=== PATIENT | female | born 1975 | race Caucasian/White ===

== ENCOUNTER → 2018-08-29 10:02 | Outpatient (CLI) | payer OTHER, SELFPAY ==
--- NOTE | 2018-08-29 | DI.US.S_ITS ---
PROCEDURE: US THYROID INDICATIONS: ROUTINE TECHNIQUE: Real-time scanning was performed of the thyroid gland, with image documentation. COMPARISON: None. FINDINGS: Right: Thyroid lobe measures 1.5 x 1.0 x 1.1 cm, and is diffusely heterogeneous in echotexture. There are 2 right lymph node is present adjacent to the submandibular region largest measuring 8 mm in maximal short axis. Left: Thyroid lobe measures 3.0 x 1.2 x 1.5 cm, and is diffusely heterogeneous in echotexture. Isthmus: 1.0 mm thick. Nodule number: 1 Location: Right mid Size: 0.4 x 0.3 x 0.3 cm. Composition: Cystic Echogenicity: Anechoic Shape: wider than tall. Margins: Smooth Echogenic foci: None Total points: 0 ACR TI-RADS category: Benign colloid cyst. Nodule number: 2 Location: Left superior Size: 0.4 x 0.3 x 0.6 cm. Composition: Cystic Echogenicity: Anechoic Shape: wider than tall. Margins: Smooth Echogenic foci: None Total points: 0 ACR TI-RADS category: Benign colloid cyst. IMPRESSION: 1. Diffusely atrophic and heterogeneous thyroid with appearance suggesting the possibility of thyroiditis. Correlate clinically. 2. Bilateral colloid cysts. 3. Several morphologically normal appearing lymph nodes on the right. ACR TI-RADS definitions and recommendations: TI-RADS 1 (benign): 0 points. FNA not needed. TI-RADS 2 (not suspicious): 2 points. FNA not needed. TI-RADS 3 (mildly suspicious): 3 points. * FNA if 2.5 cm or larger, follow up if 1.5 cm or larger (at 1, 3, and 5 years). TI-RADS 4 (moderately suspicious): 4-6 points. * FNA if 1.5 cm or larger, follow up if 1 cm or larger (at 1, 2, 3, and 5 years). TI-RADS 5 (highly suspicious): 7 points or more. * FNA if 1 cm or larger, follow up if 0.5 cm or larger (every year for 5 years). Dictated by: Andrea SAMANIEGO Interpreted: Ling Parisi MD on 08/29/2018 at 12:55 Approved by: Ling Parisi M.D. on 08/29/2018 at 15:09
--- NOTE | 2018-08-29 | DI.US.S_ITS ---
PROCEDURE: US SOFT TISSUE HEAD AND NECK INDICATIONS: Neck mass, bilateral palpable lumps posteriorly at the superior neck, occipital area. TECHNIQUE: Real-time scanning was performed of the neck region of interest, with image documentation. COMPARISON: None. FINDINGS: On the right there is what appears to be a small lymph node measuring 8 x 5 x 9 mm with a small degree of internal flow. On the left there is a even smaller apparent lymph node measuring 4 x 6 x 6 mm without appreciable elevated flow. IMPRESSION: Only small lymph nodes appear present within the neck bilaterally as discussed above associated with the clinical symptomatology. Close clinical followup is recommended. Apparently this may be a reactive finding to inflammation. They do not appear pathologically enlarged. Close clinical followup is recommended but the likelihood of underlying malignancy is considered very low. Dictated by: Ino Landon M.D. on 08/29/2018 at 17:09 Approved by: Ino Landon M.D. on 08/29/2018 at 17:11
== END ==
PROVIDERS: PCP Physician Assistant; Visit Provider Physician Assistant
DX: R59.0 Localized enlarged lymph nodes (principal); E03.9 Hypothyroidism, unspecified; E04.2 Nontoxic multinodular goiter
CPT/HCPCS: 76536

== ENCOUNTER → 2020-04-07 10:42 | Outpatient (CLI) | payer OTHER, SELFPAY ==
[2020-04-08 09:46] LABS: COVID19 Sendout Not Detected (Not Detect)
== END ==
PROVIDERS: PCP Physician Assistant; Visit Provider Nurse Practitioner
DX: Z20.828 Contact with and (suspected) exposure to other viral communicable diseases (principal)
CPT/HCPCS: 87635

== ENCOUNTER → 2020-05-20 | Outpatient (CLI) | payer SELFPAY | PROVIDERS: PCP Physician Assistant; Referring Provider Internal Medicine; Visit Provider Internal Medicine | DX: Z23 Encounter for immunization (principal) | CPT/HCPCS: 90471; 90686 ==

== ENCOUNTER → 2020-08-18 16:44 | Outpatient (CLI) | payer OTHER, SELFPAY ==
[2020-08-18 17:39] LABS: COVID19 -Nasal RAPID Negative (Negative)
== END ==
PROVIDERS: PCP Family Medicine; Visit Provider Obstetrics & Gynecology
DX: Z20.822 Contact with and (suspected) exposure to COVID-19 (principal)
CPT/HCPCS: 87635

== ENCOUNTER 2020-08-20 06:27 | Day surgery (SDC) | payer OTHER, SELFPAY ==
[2020-08-20] VITALS (19 sets, daily range): BP systolic 134–178; BP diastolic 70–116; PULSE 83–123; RESP 14–26; TEMP 36–36.8; O2SAT 91–100; BMI 46.7
--- NOTE | 2020-08-20 | PATH_ITS ---
[facility] Accession Number: [id number] . 01 Material submitted: . uterus - UTERUS AND BILATERAL FALLOPIAN TUBES . 02 Diagnosis: Uterus and Bilateral Fallopian Tubes, Hysterectomy and Bilateral Salpingectomy (Weight 94 grams): Cervix with patchy parakeratosis; negative for squamous dysplasia or malignancy. Endocervix with patchy microglandular hyperplasia; negative for glandular dysplasia or malignancy. Disordered proliferative endometrium with features of cystic atrophy; negative for glandular hyperplasia, cytologic atypia or malignancy. Myometrium with no significant histomorphologic abnormality. Uterine serosa with no significant histomorphologic abnormality. Fallopian tubes with minute, benign paratubal cysts (up to 2 mm in greatest dimension); negative for atypia or malignancy. [facility] 08/24/2020 1014 Local . 02 Electronically signed: . Herlinda Austin MD, Pathologist NPI- [id number] . 01 Gross description: . The specimen is received in formalin, labeled uterus and bilateral fallopian tubes, and consists of a 94 g uterus, cervix, and attached bilateral fallopian tubes. The specimen measures 10.5 cm from superior fundus to cervix by 5.2 cm from cornu to cornu by 4.0 cm from anterior to posterior. The vallejo-pink, smooth, and focally disrupted ectocervix measures 4.0 x 4.0 cm, and there is a 1.5 x 0.5 cm probe-patent os. The serosa is vallejo-pink and smooth. The specimen is bivalved to reveal a vallejo-pink, herringbone and cystic endocervical mucosa. The triangular endometrial cavity measures 4.0 x 1.8 cm and displays a vallejo-pink, glistening endometrium measuring 0.1 cm in thickness. The myometrium is vallejo-pink and trabeculated measuring 1.4 cm in thickness. The right fallopian tube measures 6.5 cm in length by 0.7 cm in diameter, and the left fallopian tube measures 7.0 cm in length by 0.7 cm in diameter. The serosa is vallejo-pink to pink-purple and smooth with multiple paratubal cysts measuring 0.1 cm. Sectioning reveals a vallejo mucosa and a stellate lumen measuring 0.3 cm in diameter. Systems Technologist sections are submitted: . A1: Anterior cervix. A2: Posterior cervix. A3: Anterior uterus. A4: Posterior uterus. A5: Right fallopian tube, bisected fimbria, and bank representative cross-sections. ([id number]) /[facility] 08/22/2020 [facility]0 Local . 02 Pathologist provided ICD-10: N81.3, N81.10, N81.6 . 02 CPT . 826479 Performed at: 01 [facility] [address] [place] [address], [place], [place] [id number] MD Moy Conrad MD Phone: [phone] Performed at: 02 [facility] [address] [place] [id number] MD Eva Guidry MD Phone: [phone]
[2020-08-20] MEDS: LACTATED RINGERS 1,000 ML 100 ML IV ×4 (07:18→23:07)
--- NOTE | 2020-08-20 07:38 | PM.PREOP ---
Pre-operative Note COVID-19 COVID-19 status: Negative Result date/Date tested (Pos, Neg/Pending): 08/18/20 Interval Note History & Physical reviewed/Exam performed by Physician: Yes Changes to H&P: No H&P completed within 30 days and has changed as indicated here:: 08/10/20
[2020-08-20] MEDS: CEFAZOLIN 2 GM/100 ML FROZ.PIGGY IV (07:46)
--- NOTE | 2020-08-20 08:31 | SUR.OPER ---
Lithotomy on padded OR bed. [place] Pad Positioner under torso. Head on pillow, arms padded and tucked at sides. Legs secured in padded yellow fins stirrups.
[2020-08-20] MEDS: BUPIVACAINE 0.25% W/ EPI (PF) 10 ML VIAL 90 ML INJ (08:46)
--- NOTE | 2020-08-20 11:25 | P.OP_ITS ---
Operative Date/Time/Diagnoses Date of procedure: 08/20/20 Time of procedure: 11:26 Pre-op diagnosis: Uterine prolapse Cystocele Rectocele Stress urinary incontinence Post-op diagnosis: same Procedure & Clinicians Procedure: Procedures Operation Date: 08/20/20 07:45 Actual Procedures Side Surgeon p Laparoscopic Assisted Vag Hysterectomy, Candida Shankar MD s A&P Repair, sacrospinous ligament fixation, TVT w/Cysto Candida Shankar MD Indications: Uterine prolapse Cystocele Rectocele Stress urinary incontinence Surgeon: Candida Shankar Senior Managing Director: Tarsha Gonzalez Anesthesia Type: General and Local Operative Notes Findings: Third-degree uterine prolapse with 6 week size uterus Normal tubes and ovaries Third-degree rectocele Second-degree cystocele Increased urethrovesical angle Closure Type: primary Specimen(s): left tube, right tube and uterus Applied: catheter (To continuous drainage) Estimated blood loss (mL): 200 Blood products transfused: none Procedure in detail: The patient was taken to the operating room where she was placed in the dorsal supine position. After adequate general endotracheal anesthesia was achieved, she was placed in the dorsal lithotomy position, and prepped and draped in the usual sterile fashion. A timeout was performed. A bivalve speculum was placed into the vagina, and a single-tooth tenaculum was placed on the anterior lip of the cervix. The cervical os was sequentially dilated until the ZUMI uterine manipulator could pass easily into the endometrial cavity. The single-tooth tenaculum was removed from the anterior lip of the cervix, and the bivalve speculum was removed from the vagina. Attention was then turned to the abdomen where 6 mL of dilute half percent Marcaine with epinephrine were injected in the umbilical fold. A 5 mm incision was made. The long Verees needle was placed into the peritoneal cavity, and its placement confirmed by aspiration and drop test. The abdominal cavity was insufflated with 4 L of CO2. The long Verees needle was removed, and a long 5 mm trocar was placed without difficulty. Initial inspection of the pelvis revealed the findings noted above. 2 other incisions were made midway between the pubic symphysis and umbilicus 4 cm lateral to the midline. These were 5 mm incisions. Two long 5 mm trochars were placed under direct visualization. The right tube was grasped with an atraumatic grasper. The mesosalpinx on the right side was cauterized and cut with plasma kinetic. The round ligament and broad ligament were cauterized and cut. The utero-ovarian vessels were cauteriz ed and cut on the right side. This was continued to the level of the uterine arteries. This was repeated on the patient's left side. The instruments were removed from the abdomen. The trocars were covered with a sterile towel. Attention was then turned to the vagina where the ZUMI uterine manipulator was removed from the uterus. The cervix was grasped with a 4 tooth tenaculum. 10 mL of quarter percent Marcaine with epinephrine were injected circumferentially around the cervix. The cervix was circumscribed. The bladder and rectum were dissected off the lower uterine segment and cervix with an open moistened Ray- Edelmira. The peritoneum was entered sharply with the Metzenbaum scissors anteriorly and a Humberto placed. The peritoneum was entered posteriorly with the Metzenbaum scissors and the long weighted speculum was placed into the posterior cul-de-sac. The uterosacral cardinal ligament complexes were clamped, transected, and suture ligated with 0 Vicryl. These were attached to hemostat. The uterine arteries were clamped, transected, and suture ligated with 0 Vicryl. The uterus was handed off for specimen with the tubes. There was some bleeding noted on the right side and a clamp was placed on an arterial bleeder and suture ligated with 0 Vicryl. Hemostasis was achieved. The peritoneum was closed with a pursestring suture with 2-0 Vicryl. The vaginal cuff was closed with 0 Vicryl with a series of simple interrupted sutures. The tagged sutures were cut. An Allis clamp was placed approximately 2 cm from the urethral meatus and a 2nd one placed at the apex of the cystocele. 6 mL of half percent Marcaine with epinephrine were injected and an incision was made with a #10 blade between the 2 Allis clamps. Wide Allis clamps were placed on the midline of the cystocele approximately 4. The mucosa was undermined using the Metzenbaum scissors and the mucosa incised in the midline moving the wide Allis clamps to the edges of the mucosa. The mucosa was dissected off the underlying fascia using an open moistened Ray-Edelmira and a #10 blade. The fascia was reapproximated with 0 Vicryl with a series of horizontal mattress sutures. The excess vaginal mucosa was excised. The mucosa was closed using simple interrupted sutures with 2-0 Vicryl including the underlying fascia to close the space. The weighted speculum was removed from the vagina. Allis clamps were placed at the mucocutaneous junction at the introitus. 6 mL of half percent Marcaine with epinephrine were injected. An incision was made with a #10 blade between the 2 Allis clamps, and a triangular piece of skin and underlying subcutaneous tissue was removed. Allis clamps were placed in the midline of the rectocele. 10 mL of half percent Marcaine with epinephrine were injected submucosally. The mucosa was undermined using the Metzenbaum scissors and the mucosa incised in the midline, moving the wide Allis clamps to the mucosal edges. The underlying fascia was dissected off of the mucosa using an open moistened Ray-Edelmira and a #10 blade. The fascia was reapproximated using 0 Vicryl with a series of horizontal mattress sutures. The excess vaginal mucosa was excised. The mucosa was closed using a series of simple interrupted sutures with 2-0 Vicryl including the underlying fascia to close the space. On the perineum 0 Vicryl was used to reapproximate the levator muscle. The subcutaneous layer was closed with 2-0 Vicryl. The skin was closed with 3-0 chromic in a subcuticular fashion. Hemostasis was achieved. The bladder was emptied. 100 mL of the dilute quarter percent Marcaine with epinephrine were placed into the space of Retzius behind the pubic symphysis. A weighted speculum was placed into the vagina. 2 Allis clamps were placed lateral to the urethral meatus approximately 1 cm distal. 3 mL of quarter percent Marcaine were placed submucosally. A 1 cm incision was made 1.5 cm away from the urethral meatus. This was dissected out laterally with the Metzenbaum scissors. A rigid catheter was placed into the bladder. With the bladder neck retracted away from the patient's right side 10 mL of the dilute local were placed aiming towards the patient's right shoulder up behind the pubic symphysis. This was repeated on the patient's left side, with the bladder neck retracted away from the patient's left side. After the TVT was loaded and with the bladder neck retracted away from the patient's right side the TVT was directed towards the patient's shoulder on the right side, perforating the urogenital diaphragm, and then directed up behind the pubic symphysis and the introducer came out approximately 2 cm lateral to the midline on the left side. A small 3 mm lizet in the skin was made and the introducer was brought up and grasped with a [place]. This was repeated on the patient's left side with the bladder neck retracted away from the patient's left side. The rigid portion of the catheter was removed. The bladder was filled with 240 mL of sterile saline. A cystoscopy was performed and the TVT introducer was seen through the bladder on the patient's left side. This was pulled back. The bladder was emptied and a rigid catheter was placed into the bladder and the bladder neck retracted away from the patient's left side. The TVT was replaced and came out 2 cm away from the midline. Bladder was filled with 240 cc of sterile saline. A cystoscopy was performed. There was no TVT in the bladder. The 2 introducers were pulled up with care not to over tighten the TVT. The introducers were cut. The plastic sheath over the TVT was grasped with hemostats and pulled off after the midline hemostats was removed. The TVT was cut below the skin edge, with care not to over tighten. Cleary scissors were placed between the TVT and urethra to prevent tension. The mucosa was closed with 3-0 Vicryl with a running interlocking suture. Hemostasis was achieved. A Betadine moistened vaginal packing was placed into the vagina. The Mccurdy catheter was placed into the bladder and hooked to a Mccurdy bag. Attention was then turned back to the abdomen. The abdomen was again insufflated with approximately 3.5 L of CO2. The vaginal cuff was examined. There was no bleeding noted. The pelvis was copiously irrigated with warm normal saline. The instruments were removed from the abdomen. The CO2 was allowed to escape. The incisions were repaired with 4-0 Biosyn in a subcuticular fashion. Steri-Strips, 2 x 2's, and op sites were placed over the laparoscopy incisions. A stitch with 4-0 Biosyn was placed in the left TVT incision due to a jagged border. Surgical glue was applied to both incisions. Sponge, laps, and instrument counts were correct x-2. The patient tolerated the procedure well, and was taken to PACU in stable condition. Complications: other (cystotomy) Post-operative Condition: stable Disposition: PACU Plan for aftercare: To Acute Care after Recovery
[2020-08-20] MEDS: ONDANSETRON 4 MG/2 ML INJ IV (11:45)
[2020-08-20] MEDS: fentaNYL 100 MCG/2 ML INJ IV (12:28)
[2020-08-20] MEDS: METOCLOPRAMIDE 10 MG/2 ML INJ IV (12:28)
[2020-08-20] MEDS: KETOROLAC 30 MG/ML VIAL IV ×2 (14:00→19:57)
[2020-08-20] MEDS: DOCUSATE 250 MG CAPSULE PO (21:00)
[2020-08-20] MEDS: ACETAMINOPHEN 325 MG TABLET 650 MG PO (21:04)
[2020-08-20] MEDS: AMITRIPTYLINE 25 MG TABLET PO (21:04)
[2020-08-20] MEDS: HYDROMORPHONE 0.5 MG INJ IV (21:29)
[2020-08-21] MEDS: KETOROLAC 30 MG/ML VIAL IV ×2 (03:30→08:36)
[2020-08-21 03:57] VITALS: BP 159/94; PULSE 90; RESP 16; TEMP 36.3; O2SAT 95
[2020-08-21] MEDS: LEVOTHYROXINE 137 MCG TABLET PO (06:36)
[2020-08-21] MEDS: DOCUSATE 250 MG CAPSULE PO (08:36)
[2020-08-21 08:37] VITALS: BP 158/87; PULSE 86; RESP 16; TEMP 36.6; O2SAT 93
--- NOTE | 2020-08-21 10:38 | PC.NURSE ---
Discharge note: Patient up OOB to BR this am, F/C in place draining clear yellow urine. Packing removed by Dr. Shankar this am. Discharge instructions given to patient, discussed importance of F/U with Dr. Shankar on 08/27 at 1030. Mccurdy Catheter home care instructions reviewed as well as written instructions given. Patient dressed self. Verbalized understanding of discharge instructions, including care for catheter, importance of antibiotic adherence, and s/sx of infection or abnormal vaginal bleeding. Home via private vehicle, spouse awaiting in lobby.
--- NOTE | 2020-08-21 10:44 | CM.DANOTE ---
Discharge Planning/Care Management DCP: assessment: case received, EMR reviewed and d/c order noted. Discussed in Team Rounds. Pt is a 44 year old female who admitted for a scheduled gynecological procedure. Surgeon: Dr. Shankar Payer: [facility]. Dr. Shankar has ok'd pt for d/c this morning and with a clinic followup visit with Dr. Shankar on 08/27. Went to room after Rounds to check in with pt. Staff confirm that she had already left for home setting. No d/c concerns were identified by the care team members. CM Discharge Assessment Start: 08/21/20 10:43 Freq: Status: Active Protocol: Document 08/21/20 10:44 ITV (Rec: 08/21/20 10:44 ITV [id number]) Discharge Planning Assessment Advance Directives? No History Provided By Medical Record Prior Living Arrangements House Household Members spouse,children Is patient alert and oriented? Yes Discharge Plan Home
== END 2020-08-21 10:43 | disposition home or self-care (01) ==
LOC: OR 06:30 → AC 12:08
PROVIDERS: PCP Family Medicine; Referring Provider Family Medicine; Visit Provider Obstetrics & Gynecology
PROC: 0UT9FZZ Resection of Uterus, Via Natural or Artificial Opening With Percutaneous Endoscopic Assistance (ICD-10-PCS; CPT 58552; principal; 2020-08-20 07:45)
PROC: (CPT 58552; 2020-08-20 07:45)
DX: N81.3 Complete uterovaginal prolapse (principal); N39.3 Stress incontinence (female) (male); E66.9 Obesity, unspecified; Z68.42 Body mass index [BMI] 45.0-49.9, adult; N83.8 Other noninflammatory disorders of ovary, fallopian tube and broad ligament
CPT/HCPCS: 58552; 57260; 57288; 82962; C1771; J0330; J0690; J1100; J1170; J1885; J2405; J2704; J2765; J3010

== ENCOUNTER → 2020-10-15 09:40 | Outpatient (CLI) | payer OTHER, SELFPAY ==
[2020-08-20 13:36] VITALS: BMI 46.7
[2020-10-15] MEDS: COVID-19 VACC, Ad26(JANSSEN)/PF 0.5 ML IM (09:45)
== END ==
PROVIDERS: PCP Family Medicine; Visit Provider Internal Medicine
DX: Z23 Encounter for immunization (principal)
CPT/HCPCS: 0031A; 91303

== ENCOUNTER 2021-01-22 12:45 | Outpatient (RCR) | payer OTHER, SELFPAY ==
[2020-08-20 13:36] VITALS: BMI 46.7
--- NOTE | 2020-12-18 14:55 | PT.OPPOC ---
Physical, Occupational & Speech Therapy At [facility] Current Diagnoses Complete uterovaginal prolapse (12/18/20) Other female genital prolapse (12/18/20) Encounter for follow-up examination after completed treatment for conditions other than malignant neoplasm (12/18/20) Visit Care Team Role Provider Type NANY Flores Family Provider Non-Staff Primary Care Provider Specialty: Medical Address: [address] [place] [address], [id number] Email: Candida Shankar MD Attending Provider Physician Referring Provider Specialty: Gynecology MANAGER EXCHANGE Obstetrics Address: [address] [place] [address], [address] Email: [email or web address] Plan Of Care PT-OP-T Assessment and Plan Start: 12/18/20 08:13 Freq: Status: Active Protocol: Document 12/18/20 13:30 AMB (Rec: 12/22/20 14:51 AMB [id number]) Physical Therapy Assessment Rehab Potential Rehabilitation Potential Good Evaluation Complexity Number of Personal Factors/Comorbidities 1-2 Number of Body Systems Impaired 1-2 Clinical Presentation at Evaluation Stable Impairments Impairments Functional Activities, Functional Mobility,Strength Goals Two Impairment HEP Short Term Goal (STG) Eveline will be independent and consistent with her HEP for pelvic floor strengthening. STG Duration 4 weeks One Impairment Strength Short Term Goal (STG) Eveline will lift 10# from the floor to waist height while gurwinder her pelvic floor. STG Duration 4 weeks Picking Supervisor Goal (LTG) Eveline will lift Assessment Summary Assessment Eveline attends physical therapy s/p vaginal hysterectomy and a/p repair with tvt. She has had a good recovery but would like to try to strengthen her pelvic floor. She was able to contract her pelvic floor well for a short duration, but would benefit from further strengthening for longer holds and in more gravity dependent positions. Physical Therapy Plan Frequency and Duration Frequency of Treatment 1x/Week Duration of Treatment 10 weeks Plan of Care Start Date 12/18/20 Plan of Care End Date 02/26/21 Therapeutic Interventions Therapeutic Interventions Home Exercise Program,Manual Therapy,Neuromuscular Re- education,Self-Care/Home Management,Therapeutic Activities,Therapeutic Exercises Modalities Biofeedback,Electric Stimulation Next Visit Focus/Plan Next Note Type Treatment Note Next Visit Plan progress pelvic floor strength Plan of Care Dates Plan of Care Start Date 12/18/20 Plan of Care End Date 02/26/21 Electronically Signed by: Latoya Kendall, PT 12/22/20 [id number] Please Sign and Return: I have reviewed this Plan of Care and certify that the skilled therapy services above are required to meet the patient?s needs. Physician Signature Date Printed Name and Credentials Clinical Instructor Signature Printed Name and Credentials
--- NOTE | 2020-12-18 14:55 | PT.OIE ---
Current Diagnoses Complete uterovaginal prolapse (12/18/20) Other female genital prolapse (12/18/20) Encounter for follow-up examination after completed treatment for conditions other than malignant neoplasm (12/18/20) Past Medical History (Last Reviewed 06/23/20 @ 09:16 by Candida Shankar MD) Abnormal Pap smear of cervix (~1995) Acne (~1996) Chicken pox (~1981) Depression (~1997) Fractures (~1983) Yani's disease (~2017) Headache (~1975) Hypothyroidism (~1998) Kidney stones (~1997) Migraines (~1975) Rosacea (~2014) Wears glasses Past Surgical History (Last Reviewed 06/23/20 @ 09:16 by Candida Shankar MD) Anesthesia H/O right wrist surgery (~1979) History of breast augmentation (~1996) History of cholecystectomy (~2006) History of neck surgery (~1987) Visit Care Team Role Provider Type NANY Flores Family Provider Non-Staff Primary Care Provider Specialty: Medical Address: [address] [place] [address], [id number] Email: Candida Shankar MD Attending Provider Physician Referring Provider Specialty: Gynecology [employer] Obstetric[facility] Address: [address] [place] [address], [address] Email: [email or web address] Physical Therapy Initial Evaluation PT-OP-A Visit Information Start: 12/18/20 08:13 Freq: Status: Active Protocol: Document 12/18/20 13:30 AMB (Rec: 12/18/20 15:54 AMB [email or web address]) Out-Patient Physical Therapy Visit Information Visit Information Visit Type Initial Evaluation Visit Start Time 13:30 Visit Stop Time 14:15 Total Visit Minutes 45 Visit Number 1 PT-OP-B Current Condition Start: 12/18/20 08:13 Freq: Status: Active Protocol: Document 12/18/20 13:25 AMB (Rec: 12/18/20 14:10 AMB [id number]) Current Condition History of Current Condition Onset Date 08/20/20 Current Complaints pelvic floor strengthening s/p prolapse surgery History of Current Condition Eveline had a vaginal hysterectomy A&P repair and TVT in August. At the time of surgery she reports she had 3rd degree uterine prolapse with cystocele and rectocele and was aware of the prolapse and had stress urinary incontinence. She does not report continued incontinence since the surgery, but is hoping to strengthen her pelvic floor so she doesn't need further surgery in the future. Treatment Goals Patient/Caregiver Goals Have confidence to lift things without worrying about getting prolapse back. Prior Functional Status Baseline Function- ADL's Independent Baseline Function- Mobility Independent Current Functional Impairments (Reported) Functional Limitations- ADL's Avoids lifting heavy items Personal Factors Other Personal Factors That May Effect Obesity Therapy/Recovery PT-OP-C Subjective Start: 12/18/20 08:13 Freq: Status: Active Protocol: Document 12/18/20 15:57 AMB (Rec: 12/18/20 15:58 AMB [email or web address]) Patient Questionnaires Pelvic Pain and Urgency/Frequency Patient Symptom Scale Pelvic Pain Score 0 PT-OP-I Pelvic Floor Start: 12/18/20 08:13 Freq: Status: Active Protocol: Document 12/18/20 13:30 AMB (Rec: 12/18/20 15:57 AMB [email or web address]) Pelvic Floor Assessment Urine Pelvic Floor Surgery Yes: hysterectomy, AP repair TVT wiht sacrospinous fix Other Leakage Causes Denies leaks after surgery, was having stress incontinence beforehand Bowel Other Bowel Symptoms constipation every now and then Pelvic Clock Pelvic Clock 3-6 Tenderness Pelvic Clock 9-12 Tenderness Perineal Descent Resting Absent SEMG (uV) Baseline 5 Quick Contraction 12 10 Second Contraction 10 Recruitment Pattern Good Relaxation Good Holding Fair Stability of Hold Fair SEMG Stability of Rest Good Contraction Ability Voluntary Contraction Moderate Voluntary Relaxation Moderate Manual Muscle Testing Left 2 Manual Muscle Testing Right 2 Manual Muscle Testing Anterior 3 Manual Muscle Testing Posterior 3 Muscle Endurance (Seconds) 5 Number of Quick Contractions In 10 6 Seconds PT-OP-T Assessment and Plan Start: 12/18/20 08:13 Freq: Status: Active Protocol: Document 12/18/20 13:30 AMB (Rec: 12/22/20 14:51 AMB [email or web address]) Physical Therapy Assessment Rehab Potential Rehabilitation Potential Good Evaluation Complexity Number of Personal Factors/Comorbidities 1-2 Number of Body Systems Impaired 1-2 Clinical Presentation at Evaluation Stable Impairments Impairments Functional Activities, Functional Mobility,Strength Goals Two Impairment HEP Short Term Goal (STG) Eveline will be independent and consistent with her HEP for pelvic floor strengthening. STG Duration 4 weeks One Impairment Strength Short Term Goal (STG) Eveline will lift 10# from the floor to waist height while gurwinder her pelvic floor. STG Duration 4 weeks [facility] Goal (LTG) Eveline will lift Assessment Summary Assessment Eveline attends physical therapy s/p vaginal hysterectomy and a/p repair with tvt. She has had a good recovery but would like to try to strengthen her pelvic floor. She was able to contract her pelvic floor well for a short duration, but would benefit from further strengthening for longer holds and in more gravity dependent positions. Physical Therapy Plan Frequency and Duration Frequency of Treatment 1x/Week Duration of Treatment 10 weeks Plan of Care Start Date 12/18/20 Plan of Care End Date 02/26/21 Therapeutic Interventions Therapeutic Interventions Home Exercise Program,Manual Therapy,Neuromuscular Re- education,Self-Care/Home Management,Therapeutic Activities,Therapeutic Exercises Modalities Biofeedback,Electric Stimulation Next Visit Focus/Plan Next Note Type Treatment Note Next Visit Plan progress pelvic floor strength
--- NOTE | 2021-01-01 16:15 | PT.OTN ---
Current Diagnoses Complete uterovaginal prolapse (01/01/21) Other female genital prolapse (01/01/21) Encounter for follow-up examination after completed treatment for conditions other than malignant neoplasm (01/01/21) Physical Therapy Treatment Note PT-OP-A Visit Information Start: 12/18/20 08:13 Freq: Status: Active Protocol: Document 01/01/21 13:30 AMB (Rec: 01/01/21 13:41 AMB [id number]) Out-Patient Physical Therapy Visit Information Visit Information Visit Type Treatment Note Visit Start Time 13:30 Visit Stop Time 14:15 Total Visit Minutes 45 Visit Number 2 PT-OP-B Current Condition Start: 12/18/20 08:13 Freq: Status: Active Protocol: Document 12/18/20 13:25 AMB (Rec: 12/18/20 14:10 AMB [id number]) Current Condition History of Current Condition Onset Date 08/20/20 Current Complaints pelvic floor strengthening s/p prolapse surgery History of Current Condition Eveline had a vaginal hysterectomy A&P repair and TVT in August. At the time of surgery she reports she had 3rd degree uterine prolapse with cystocele and rectocele and was aware of the prolapse and had stress urinary incontinence. She does not report continued incontinence since the surgery, but is hoping to strengthen her pelvic floor so she doesn't need further surgery in the future. Treatment Goals Patient/Caregiver Goals Have confidence to lift things without worrying about getting prolapse back. Prior Functional Status Baseline Function- ADL's Independent Baseline Function- Mobility Independent Current Functional Impairments (Reported) Functional Limitations- ADL's Avoids lifting heavy items Personal Factors Other Personal Factors That May Effect Obesity Therapy/Recovery PT-OP-C Subjective Start: 12/18/20 08:13 Freq: Status: Active Protocol: Document 01/01/21 16:10 AMB (Rec: 01/01/21 16:15 AMB [email or web address]) OP-PT Subjective Patient Comments Patient Comments Eveline has been doing Kegels when she thinks about it, usually before bed lying down. PT-OP-I Pelvic Floor Start: 12/18/20 08:13 Freq: Status: Active Protocol: Document 12/18/20 13:30 AMB (Rec: 12/18/20 15:57 AMB [email or web address]) Pelvic Floor Assessment Urine Pelvic Floor Surgery Yes: hysterectomy, AP repair TVT wiht sacrospinous fix Other Leakage Causes Denies leaks after surgery, was having stress incontinence beforehand Bowel Other Bowel Symptoms constipation every now and then Pelvic Clock Pelvic Clock 3-6 Tenderness Pelvic Clock 9-12 Tenderness Perineal Descent Resting Absent SEMG (uV) Baseline 5 Quick Contraction 12 10 Second Contraction 10 Recruitment Pattern Good Relaxation Good Holding Fair Stability of Hold Fair SEMG Stability of Rest Good Contraction Ability Voluntary Contraction Moderate Voluntary Relaxation Moderate Manual Muscle Testing Left 2 Manual Muscle Testing Right 2 Manual Muscle Testing Anterior 3 Manual Muscle Testing Posterior 3 Muscle Endurance (Seconds) 5 Number of Quick Contractions In 10 6 Seconds PT-OP-Q Treatments Start: 12/18/20 08:13 Freq: Status: Active Protocol: Document 01/01/21 16:10 AMB (Rec: 01/01/21 16:15 AMB [email or web address]) Therapeutic Exercises Supine Exercises 1 Supine Exercise Name roll in roll out Resistance #3 t band Reps/Minutes 2x10 Sitting Exercises 2 Sitting Exercise Name sit<>Stand Reps/Minutes difficult 1 Sitting Exercise Name long holds/quick flicks Reps/Minutes 2x10 Other Exercises 1 Other Exercise Name quadruped long holds Reps/Minutes 2x10 PT-OP-T Assessment and Plan Start: 12/18/20 08:13 Freq: Status: Active Protocol: Document 01/01/21 16:10 AMB (Rec: 01/01/21 16:15 AMB [email or web address]) Physical Therapy Assessment Assessment Summary Assessment Eveline did well with supine strengthening (except for back pain) quadruped worked well, but standing continues to bee too challenging. Physical Therapy Plan Next Visit Focus/Plan Next Note Type Treatment Note Next Visit Plan Progress pelvic floor strength , but pt is sore with lying supine after her fall, so consider quadruped/seated
--- NOTE | 2021-01-08 15:00 | PT.OTN ---
Current Diagnoses Complete uterovaginal prolapse (01/08/21) Other female genital prolapse (01/08/21) Encounter for follow-up examination after completed treatment for conditions other than malignant neoplasm (01/08/21) Physical Therapy Treatment Note PT-OP-A Visit Information Start: 12/18/20 08:13 Freq: Status: Active Protocol: Document 01/08/21 12:45 AMB (Rec: 01/08/21 13:06 AMB [id number]) Out-Patient Physical Therapy Visit Information Visit Information Visit Type Treatment Note Visit Start Time 12:45 Visit Stop Time 13:30 Total Visit Minutes 45 Visit Number 3 PT-OP-B Current Condition Start: 12/18/20 08:13 Freq: Status: Active Protocol: Document 12/18/20 13:25 AMB (Rec: 12/18/20 14:10 AMB [id number]) Current Condition History of Current Condition Onset Date 08/20/20 Current Complaints pelvic floor strengthening s/p prolapse surgery History of Current Condition Eveline had a vaginal hysterectomy A&P repair and TVT in August. At the time of surgery she reports she had 3rd degree uterine prolapse with cystocele and rectocele and was aware of the prolapse and had stress urinary incontinence. She does not report continued incontinence since the surgery, but is hoping to strengthen her pelvic floor so she doesn't need further surgery in the future. Treatment Goals Patient/Caregiver Goals Have confidence to lift things without worrying about getting prolapse back. Prior Functional Status Baseline Function- ADL's Independent Baseline Function- Mobility Independent Current Functional Impairments (Reported) Functional Limitations- ADL's Avoids lifting heavy items Personal Factors Other Personal Factors That May Effect Obesity Therapy/Recovery PT-OP-C Subjective Start: 12/18/20 08:13 Freq: Status: Active Protocol: Document 01/08/21 12:45 AMB (Rec: 01/08/21 13:06 AMB [id number]) OP-PT Subjective Patient Comments Patient Comments Difficult to tell if she's holding it or letting it go. PT-OP-I Pelvic Floor Start: 12/18/20 08:13 Freq: Status: Active Protocol: Document 12/18/20 13:30 AMB (Rec: 12/18/20 15:57 AMB [email or web address]) Pelvic Floor Assessment Urine Pelvic Floor Surgery Yes: hysterectomy, AP repair TVT wiht sacrospinous fix Other Leakage Causes Denies leaks after surgery, was having stress incontinence beforehand Bowel Other Bowel Symptoms constipation every now and then Pelvic Clock Pelvic Clock 3-6 Tenderness Pelvic Clock 9-12 Tenderness Perineal Descent Resting Absent SEMG (uV) Baseline 5 Quick Contraction 12 10 Second Contraction 10 Recruitment Pattern Good Relaxation Good Holding Fair Stability of Hold Fair SEMG Stability of Rest Good Contraction Ability Voluntary Contraction Moderate Voluntary Relaxation Moderate Manual Muscle Testing Left 2 Manual Muscle Testing Right 2 Manual Muscle Testing Anterior 3 Manual Muscle Testing Posterior 3 Muscle Endurance (Seconds) 5 Number of Quick Contractions In 10 6 Seconds PT-OP-Q Treatments Start: 12/18/20 08:13 Freq: Status: Active Protocol: Document 01/08/21 12:45 AMB (Rec: 01/10/21 09:44 AMB [email or web address]) Therapeutic Exercises Supine Exercises 1 Supine Exercise Name roll in roll out Resistance #3 t band Reps/Minutes 2x10 Sidelying Exercises 1 Sidelying Exercise Name quick flicks and long holds Comments with sEMG Sitting Exercises 1 Sitting Exercise Name long holds/quick flicks Reps/Minutes 2x10 PT-OP-T Assessment and Plan Start: 12/18/20 08:13 Freq: Status: Active Protocol: Document 01/08/21 12:45 AMB (Rec: 01/10/21 09:44 AMB [email or web address]) Physical Therapy Assessment Assessment Summary Assessment Eveline continues to be challenged by stabilizing with movement, so focus on quick flicks and long holds without movement so pt feels a bit more successful before moving forward. Physical Therapy Plan Next Visit Focus/Plan Next Note Type Treatment Note Next Visit Plan Focus on exercise pt can do without having to stabilize with movement as that continues to be challenging. Back pain is a limiting factor .
--- NOTE | 2021-01-22 14:56 | PT.OTN ---
Current Diagnoses Complete uterovaginal prolapse (01/22/21) Other female genital prolapse (01/22/21) Encounter for follow-up examination after completed treatment for conditions other than malignant neoplasm (01/22/21) Physical Therapy Treatment Note PT-OP-A Visit Information Start: 12/18/20 08:13 Freq: Status: Active Protocol: Document 01/22/21 12:45 AMB (Rec: 01/22/21 14:20 AMB [id number]) Out-Patient Physical Therapy Visit Information Visit Information Visit Type Treatment Note Visit Start Time 12:45 Visit Stop Time 13:30 Total Visit Minutes 45 Visit Number 4 PT-OP-B Current Condition Start: 12/18/20 08:13 Freq: Status: Active Protocol: Document 12/18/20 13:25 AMB (Rec: 12/18/20 14:10 AMB [id number]) Current Condition History of Current Condition Onset Date 08/20/20 Current Complaints pelvic floor strengthening s/p prolapse surgery History of Current Condition Eveline had a vaginal hysterectomy A&P repair and TVT in August. At the time of surgery she reports she had 3rd degree uterine prolapse with cystocele and rectocele and was aware of the prolapse and had stress urinary incontinence. She does not report continued incontinence since the surgery, but is hoping to strengthen her pelvic floor so she doesn't need further surgery in the future. Treatment Goals Patient/Caregiver Goals Have confidence to lift things without worrying about getting prolapse back. Prior Functional Status Baseline Function- ADL's Independent Baseline Function- Mobility Independent Current Functional Impairments (Reported) Functional Limitations- ADL's Avoids lifting heavy items Personal Factors Other Personal Factors That May Effect Obesity Therapy/Recovery PT-OP-C Subjective Start: 12/18/20 08:13 Freq: Status: Active Protocol: Document 01/22/21 12:45 AMB (Rec: 01/22/21 14:20 AMB [id number]) OP-PT Subjective Patient Comments Patient Comments Pt has had some family members staying with her PT-OP-I Pelvic Floor Start: 12/18/20 08:13 Freq: Status: Active Protocol: Document 12/18/20 13:30 AMB (Rec: 12/18/20 15:57 AMB [email or web address]) Pelvic Floor Assessment Urine Pelvic Floor Surgery Yes: hysterectomy, AP repair TVT wiht sacrospinous fix Other Leakage Causes Denies leaks after surgery, was having stress incontinence beforehand Bowel Other Bowel Symptoms constipation every now and then Pelvic Clock Pelvic Clock 3-6 Tenderness Pelvic Clock 9-12 Tenderness Perineal Descent Resting Absent SEMG (uV) Baseline 5 Quick Contraction 12 10 Second Contraction 10 Recruitment Pattern Good Relaxation Good Holding Fair Stability of Hold Fair SEMG Stability of Rest Good Contraction Ability Voluntary Contraction Moderate Voluntary Relaxation Moderate Manual Muscle Testing Left 2 Manual Muscle Testing Right 2 Manual Muscle Testing Anterior 3 Manual Muscle Testing Posterior 3 Muscle Endurance (Seconds) 5 Number of Quick Contractions In 10 6 Seconds PT-OP-Q Treatments Start: 12/18/20 08:13 Freq: Status: Active Protocol: Document 01/22/21 12:45 AMB (Rec: 01/22/21 14:20 AMB [id number]) Therapeutic Exercises Sitting Exercises 3 Sitting Exercise Name PF contract with pelvic tilts 2 Sitting Exercise Name PF contract with LAQ Reps/Minutes 10 Comments marching felt like she lost it . 1 Sitting Exercise Name long holds/quick flicks Reps/Minutes 2x10 Other Exercises 2 Other Exercise Name cat cow and then sidbending in quadruped Comments with and without pelvic floor contraction 1 Other Exercise Name quadruped long holds Reps/Minutes 2x10 PT-OP-T Assessment and Plan Start: 12/18/20 08:13 Freq: Status: Active Protocol: Document 01/22/21 12:45 AMB (Rec: 01/22/21 14:20 AMB [id number]) Physical Therapy Assessment Goals Two Impairment HEP Short Term Goal (STG) Eveline will be independent and consistent with her HEP for pelvic floor strengthening. STG Duration 4 weeks One Impairment Strength Short Term Goal (STG) Eveline will lift 10# from the floor to waist height while gurwinder her pelvic floor. STG Duration 12 weeks Assessment Summary Assessment Pt tolerated pelvic floor contraction in quadruped with movement and pelvic tilts in seated. Working on moving with pelvic floor engaged is more challenging but she is improving. Physical Therapy Plan Next Visit Focus/Plan Next Note Type Treatment Note Next Visit Plan Follow up on Pelvic tilts and quadruped stabilization. Coccyx and low back pain continue.
--- NOTE | 2021-02-26 15:17 | PT.OPDS ---
Current Diagnoses Complete uterovaginal prolapse (01/22/21) Other female genital prolapse (01/22/21) Encounter for follow-up examination after completed treatment for conditions other than malignant neoplasm (01/22/21) Visit Care Team Role Provider Type NANY Flores Family Provider Non-Staff Primary Care Provider Specialty: Medical Address: [address] [place] [address], [address] Email: Candida Shankar MD Attending Provider Physician Referring Provider Specialty: Gynecology [employer] Obstetrics Address: [address] [place] [address], [id number] Email: [email or web address] Visit Number Visit Number 4 Discharge Summary PT-OP-B Current Condition Start: 12/18/20 08:13 Freq: Status: Active Protocol: Document 12/18/20 13:25 AMB (Rec: 12/18/20 14:10 AMB [id number]) Current Condition History of Current Condition Onset Date 08/20/20 Current Complaints pelvic floor strengthening s/p prolapse surgery History of Current Condition Eveline had a vaginal hysterectomy A&P repair and TVT in August. At the time of surgery she reports she had 3rd degree uterine prolapse with cystocele and rectocele and was aware of the prolapse and had stress urinary incontinence. She does not report continued incontinence since the surgery, but is hoping to strengthen her pelvic floor so she doesn't need further surgery in the future. Treatment Goals Patient/Caregiver Goals Have confidence to lift things without worrying about getting prolapse back. Prior Functional Status Baseline Function- ADL's Independent Baseline Function- Mobility Independent Current Functional Impairments (Reported) Functional Limitations- ADL's Avoids lifting heavy items Personal Factors Other Personal Factors That May Effect Obesity Therapy/Recovery PT-OP-C Subjective Start: 12/18/20 08:13 Freq: Status: Active Protocol: Document 01/22/21 12:45 AMB (Rec: 01/22/21 14:20 AMB [id number]) OP-PT Subjective Patient Comments Patient Comments Pt has had some family members staying with her PT-OP-I Pelvic Floor Start: 12/18/20 08:13 Freq: Status: Active Protocol: Document 12/18/20 13:30 AMB (Rec: 12/18/20 15:57 AMB [email or web address]) Pelvic Floor Assessment Urine Pelvic Floor Surgery Yes: hysterectomy, AP repair TVT wiht sacrospinous fix Other Leakage Causes Denies leaks after surgery, was having stress incontinence beforehand Bowel Other Bowel Symptoms constipation every now and then Pelvic Clock Pelvic Clock 3-6 Tenderness Pelvic Clock 9-12 Tenderness Perineal Descent Resting Absent SEMG (uV) Baseline 5 Quick Contraction 12 10 Second Contraction 10 Recruitment Pattern Good Relaxation Good Holding Fair Stability of Hold Fair SEMG Stability of Rest Good Contraction Ability Voluntary Contraction Moderate Voluntary Relaxation Moderate Manual Muscle Testing Left 2 Manual Muscle Testing Right 2 Manual Muscle Testing Anterior 3 Manual Muscle Testing Posterior 3 Muscle Endurance (Seconds) 5 Number of Quick Contractions In 10 6 Seconds PT-OP-T Assessment and Plan Start: 12/18/20 08:13 Freq: Status: Active Protocol: Document 02/26/21 15:15 AMB (Rec: 02/26/21 15:17 AMB [email or web address]) Physical Therapy Assessment Goals Two Impairment HEP Short Term Goal (STG) Eveline will be independent and consistent with her HEP for pelvic floor strengthening. STG Duration MET One Impairment Strength Short Term Goal (STG) Eveline will lift 10# from the floor to waist height while gurwinder her pelvic floor. STG Duration NOT MET Physical Therapy Plan Discharge Physical Therapy Discharge Reasons No Longer Attending PT Discharge Comments Pt called into cancel appts due to family illness and needing to provide childcare for her brother who is sick with cancer and not having time to attend PT at this gudelia. She was seen for 4 visits and in that time had improved her ability to contract her pelvic floor in seated and supine, but continued to be weak in standing.
== END 2021-03-01 10:49 | disposition home or self-care (01) ==
LOC: PHYS 12:45
PROVIDERS: Family Provider Nurse Practitioner Family; PCP Nurse Practitioner Family; Referring Provider Obstetrics & Gynecology; Visit Provider Obstetrics & Gynecology
DX: N81.89 Other female genital prolapse (principal); N81.3 Complete uterovaginal prolapse; Z09 Encounter for follow-up examination after completed treatment for conditions other than malignant neoplasm
CPT/HCPCS: 97110; 97161

== ENCOUNTER → 2021-04-21 09:23 | Outpatient (CLI) | payer OTHER, SELFPAY ==
[2020-08-20 13:36] VITALS: BMI 46.7
[2021-04-21 12:30] LABS: COVID19 -Nasal RAPID Negative (Negative)
== END ==
PROVIDERS: Family Provider Nurse Practitioner Family; PCP Nurse Practitioner Family; Visit Provider Nurse Practitioner Family
DX: Z20.822 Contact with and (suspected) exposure to COVID-19 (principal)
CPT/HCPCS: 87635

== ENCOUNTER → 2021-04-26 09:17 | Outpatient (CLI) | payer OTHER, SELFPAY ==
[2020-08-20 13:36] VITALS: BMI 46.7
[2021-04-26 13:14] LABS: COVID19 -Nasal RAPID Negative (Negative)
== END ==
PROVIDERS: Family Provider Nurse Practitioner Family; PCP Nurse Practitioner Family; Visit Provider Nurse Practitioner Family
DX: Z20.822 Contact with and (suspected) exposure to COVID-19 (principal)
CPT/HCPCS: 87635

== ENCOUNTER → 2021-05-03 09:32 | Outpatient (CLI) | payer OTHER, SELFPAY ==
[2020-08-20 13:36] VITALS: BMI 46.7
[2021-05-03 13:25] LABS: COVID19 -Nasal RAPID Negative (Negative)
== END ==
PROVIDERS: Family Provider Nurse Practitioner Family; PCP Nurse Practitioner Family; Visit Provider Nurse Practitioner Family
DX: Z20.822 Contact with and (suspected) exposure to COVID-19 (principal)
CPT/HCPCS: 87635

== ENCOUNTER → 2021-07-12 19:41 | Outpatient (CLI) | payer OTHER, SELFPAY ==
[2020-08-20 13:36] VITALS: BMI 46.7
== END ==
PROVIDERS: Family Provider Nurse Practitioner Family; PCP Nurse Practitioner Family; Referring Provider Internal Medicine; Visit Provider Internal Medicine
DX: Z23 Encounter for immunization (principal)
CPT/HCPCS: 90471; 90686

== ENCOUNTER → 2021-11-24 14:27 | Outpatient (CLI) | payer OTHER, SELFPAY ==
[2020-08-20 13:36] VITALS: BMI 46.7
[2021-11-24 14:54] LABS: Add Manual Diff / Slide Review NO; Basophils Absolute Auto 0 /uL (0-100); Basophils Percent Auto 0.5 % (0-2); Eosinophils Absolute Auto 100 /uL (0-450); Eosinophils Percent Auto 0.8 % (2-4); Hematocrit 37.1 % (36-46); Hemoglobin 12.3 g/dL (12.0-16.0); Lymphocytes Absolute Auto 1900 /uL (1100-4500); Lymphocytes Percent Auto 27.9 % (25-40); Mean Corpuscular HGB Conc 33.2 % (30-36); Mean Corpuscular Hemoglobin 26.1 PG (26-34); Mean Corpuscular Volume 78.5 fL (80-100); Monocytes Absolute Auto 400 /uL (0-900); Monocytes Percent Auto 5.2 % (3-14); Neutrophils Absolute Auto 4500 /uL (1500-7000); Neutrophils Percent Auto 65.6 % (50-75); Platelet Count 356 X10^3/uL (150-400); Red Blood Cell Count 4.72 X10^6/uL (4.0-5.2); Red Cell Distribution Width 14.4 % (11.6-14.8); White Blood Cell Count 6.9 X10^3/uL (4.5-11.0)
[2021-11-24 15:03] LABS: Hemoglobin A1C% w Est Avg Glu 5.6 % (4.0-6.0)
[2021-11-24 15:09] LABS: Alanine Aminotransferase 28 IU/L (<35); Albumin 4.3 g/dL (3.5-5.0); Albumin Globulin Ratio 1.4 (1.0-2.8); Alkaline Phosphatase 92 U/L (38-126); Aspartate Aminotransferase 29 IU/L (14-36); Bilirubin Total 0.4 mg/dL (0.2-1.3); Blood Urea Nitrogen 15 mg/dL (7-17); Calcium 8.9 mg/dL (8.4-10.2); Carbon Dioxide 28 mmol/L (22-32); Chloride 103 mmol/L (98-107); Estimated Glomerular Filt Rate > 60 mL/min (>60); Glucose 102 mg/dL (70-100); HEMOLYSIS < 15 (0-50); Potassium 3.9 mmol/L (3.4-5.1); Sodium 139 mmol/L (137-145); Total Protein 7.3 g/dL (6.3-8.2)
[2021-11-24 15:57] LABS: Vitamin B12 318 pg/mL (239-931)
[2021-11-24 16:45] LABS: Vitamin D 25 Hydroxy (D3) 44.9 ng/mL (30.0-100.0)
== END ==
PROVIDERS: Family Provider Nurse Practitioner Family; PCP Nurse Practitioner Family; Referring Provider Nurse Practitioner Family; Visit Provider Nurse Practitioner Family
DX: R53.83 Other fatigue (principal)
CPT/HCPCS: 36415; 80053; 82306; 82607; 83036; 85025

== ENCOUNTER → 2022-02-17 07:42 | Outpatient (CLI) | payer OTHER, SELFPAY ==
[2022-01-17 15:51] VITALS: BMI 46.7
--- NOTE | 2022-02-17 | DI.MG.S_ITS ---
BILATERAL DIGITAL SCREENING MAMMOGRAM 3D/2D WITH CAD WITH AUGMENTATION: 02/17/2022 CLINICAL: Patient presents for routine screening. S/P bilateral augmentation. Comparison is made to exams dated: 11/28/2016 ultrasound, 11/28/2016 ultrasound, and 11/28/2016 mammogram - [facility]. The tissue of both breasts is heterogeneously dense. This may lower the sensitivity of mammography. Current study was also evaluated with a Computer Aided Detection (CAD) system. Bilateral breast implants are intact. No significant masses, calcifications, or other findings are seen in either breast. There has been no significant interval change. IMPRESSION: NEGATIVE There is no mammographic evidence of malignancy. A 1 year screening mammogram is recommended. Based on the Tyrer Cuzick model (a risk assessment model) the patient's lifetime risk is 8.7% and her 10 year risk is 1.8%. According to the ACR, ACS, and NCCN guidelines, an annual breast MRI exam along with mammogram is recommended if the patient's lifetime risk is 20% or greater. This exam was interpreted at Station ID: [id number]. NOTE: For mammograms, a report in lay terms will be sent to the patient. Approximately 15% of breast malignancies will not be visualized mammographically. In the management of a palpable breast mass, a negative mammogram must not discourage biopsy of a clinically suspicious lesion. Electronically Signed By: Shayan Roque M.D., jr/lissy:02/17/2022 12:03:13 letter sent: Normal Exam ACR BI-RADS Category 1: Negative [id number]
== END ==
PROVIDERS: Family Provider Nurse Practitioner Family; PCP Nurse Practitioner Family; Referring Provider Nurse Practitioner Family; Visit Provider Nurse Practitioner Family
DX: Z12.31 Encounter for screening mammogram for malignant neoplasm of breast (principal); Z98.82 Breast implant status
CPT/HCPCS: 77063; 77067

== ENCOUNTER → 2022-05-23 15:54 | Outpatient (CLI) | payer OTHER, SELFPAY ==
[2022-01-17 15:51] VITALS: BMI 46.7
[2022-05-23 17:29] LABS: Hematocrit 35.7 % (36-46); Hemoglobin 11.9 g/dL (12.0-16.0); Mean Corpuscular HGB Conc 33.4 % (30-36); Mean Corpuscular Hemoglobin 26.4 PG (26-34); Mean Corpuscular Volume 79.1 fL (80-100); Platelet Count 342 X10^3/uL (150-400); Red Blood Cell Count 4.51 X10^6/uL (4.0-5.2); Red Cell Distribution Width 14.3 % (11.6-14.8)
[2022-05-23 18:23] LABS: Alanine Aminotransferase 17 IU/L (<35); Albumin Globulin Ratio 1.2 (1.0-2.8); Alkaline Phosphatase 88 U/L (38-126); Aspartate Aminotransferase 22 IU/L (14-36); BUN Creatinine Ratio 15.9 (6-22); Bilirubin Total 0.4 mg/dL (0.2-1.3); Blood Urea Nitrogen 13 mg/dL (7-17); Calcium 9.3 mg/dL (8.4-10.2); Carbon Dioxide 27 mmol/L (22-32); Chloride 103 mmol/L (98-107); Estimated Glomerular Filt Rate > 60 mL/min (>60); Globulin 3.4 g/dL (1.7-4.1); Glucose 80 mg/dL (70-100); HEMOLYSIS < 15 (0-50); Iron 52 ug/dL (37-170); Potassium 3.8 mmol/L (3.4-5.1); Sodium 140 mmol/L (137-145); Total Protein 7.4 g/dL (6.3-8.2)
[2022-05-23 18:34] LABS: Percent Iron Saturation 15 % (15-50); Total Iron Binding Capacity 343 ug/dL (265-497); Transferrin 247 mg/dL (206-381)
[2022-05-23 18:40] LABS: Free T4, Direct Thyroxine 1.67 ng/dL (0.78-2.19)
[2022-05-23 18:54] LABS: Thyroid Stimulating Hormone 0.696 uIU/mL (0.47-4.68)
== END ==
PROVIDERS: Family Provider Nurse Practitioner Family; PCP Nurse Practitioner Family; Referring Provider Obstetrics & Gynecology; Visit Provider Obstetrics & Gynecology
DX: E03.9 Hypothyroidism, unspecified (principal); E06.3 Autoimmune thyroiditis; R53.83 Other fatigue
CPT/HCPCS: 36415; 80053; 83540; 83550; 84439; 84443; 85027

== ENCOUNTER → 2022-07-28 15:44 | Outpatient (CLI) | payer OTHER, SELFPAY ==
[2022-01-17 15:51] VITALS: BMI 46.7
== END ==
PROVIDERS: Family Provider Nurse Practitioner Family; PCP Nurse Practitioner Family; Referring Provider Internal Medicine; Visit Provider Internal Medicine
DX: Z23 Encounter for immunization (principal)
CPT/HCPCS: 90471; 90686

== ENCOUNTER → 2022-10-13 07:51 | Outpatient (CLI) | payer OTHER, SELFPAY ==
[2022-01-17 15:51] VITALS: BMI 46.7
[2022-10-13 08:38] LABS: Add Manual Diff / Slide Review NO; Basophils Absolute Auto 0 /uL (0-100); Basophils Percent Auto 0.5 % (0-2); Eosinophils Absolute Auto 0 /uL (0-450); Eosinophils Percent Auto 0.2 % (2-4); Hemoglobin 12.9 g/dL (12.0-16.0); Lymphocytes Absolute Auto 1300 /uL (1100-4500); Lymphocytes Percent Auto 17.1 % (25-40); Mean Corpuscular HGB Conc 32.2 % (30-36); Mean Corpuscular Hemoglobin 25.7 PG (26-34); Mean Corpuscular Volume 79.7 fL (80-100); Monocytes Absolute Auto 400 /uL (0-900); Monocytes Percent Auto 5.7 % (3-14); Neutrophils Absolute Auto 5900 /uL (1500-7000); Neutrophils Percent Auto 76.5 % (50-75); Platelet Count 354 X10^3/uL (150-400); Red Blood Cell Count 5.02 X10^6/uL (4.0-5.2); Red Cell Distribution Width 14.8 % (11.6-14.8); White Blood Cell Count 7.7 X10^3/uL (4.5-11.0)
[2022-10-13 09:17] LABS: Cholesterol 215 mg/dL (140-199); Glucose 102 mg/dL (70-100); HDL Cholesterol 54 mg/dL (40-60); LDL Cholesterol Calculated 143 mg/dL (<100); Triglycerides 88 mg/dL (35-150)
[2022-10-13 09:38] LABS: Free T4, Direct Thyroxine 1.41 ng/dL (0.78-2.19)
[2022-10-13 09:52] LABS: Thyroid Stimulating Hormone 1.24 uIU/mL (0.47-4.68)
[2022-10-15 06:36] LABS: Insulin Level Total 22.3 uIU/mL (2.6-24.9)
== END ==
PROVIDERS: Family Provider Nurse Practitioner Family; PCP Nurse Practitioner Family; Referring Provider Obstetrics & Gynecology; Visit Provider Obstetrics & Gynecology
DX: D64.9 Anemia, unspecified (principal); E03.9 Hypothyroidism, unspecified; E06.3 Autoimmune thyroiditis; E66.9 Obesity, unspecified; E78.5 Hyperlipidemia, unspecified; I10 Essential (primary) hypertension
CPT/HCPCS: 36415; 80061; 82947; 83525; 84439; 84443; 85025